=== PATIENT | male | born 1945 | race Caucasian/White ===

== ENCOUNTER → 2018-08-20 14:37 | Outpatient (CLI) | payer MEDICARE, OTHER, SELFPAY ==
--- NOTE | 2018-08-20 | DI.RAD.S_ITS ---
PROCEDURE: XR CHEST 2V INDICATIONS: shortness of breath TECHNIQUE: 2 views of the chest were acquired. COMPARISON: [facility], CT, CT HEAD/BRAIN WO CON, 08/20/2018, 14:40. FINDINGS: Surgical changes and devices: None. Lungs and pleura: No pleural effusions or pneumothorax. Bilateral pulmonary nodules are seen, with 3.5 cm left upper lobe mass and a dense 1 cm right lower lobe mass. No focal infiltrates are seen. Mediastinum: Mediastinal contours are normal. Heart size is normal. Bones and chest wall: No suspicious bony abnormalities. Soft tissues appear unremarkable. IMPRESSION: Bilateral pulmonary nodules are seen. Neoplasm is strongly suspected. Further workup with a dedicated chest CT would be recommended. Note: Case discussed by telephone with Theresa Almodovar PA-C at 3:10 PM [place] time on August 20, 2018. Dictated by: Kan Acuña M.D. on 08/20/2018 at 14:15 Approved by: Kan Acuña M.D. on 08/20/2018 at 14:16
--- NOTE | 2018-08-20 | DI.CT.S_ITS ---
PROCEDURE: CT HEAD/BRAIN WO CON INDICATIONS: Other amnesia/short of breath TECHNIQUE: Noncontrast 4.5 mm thick angled axial sections acquired from the foramen magnum to the vertex, with coronal and sagittal reformats. For radiation dose reduction, the following was used: automated exposure control, adjustment of mA and/or kV according to patient size. COMPARISON: [facility], CR, XR CHEST 2V, 08/20/2018, 14:45. FINDINGS: Image quality: Excellent. CSF spaces: Basal cisterns are patent. No extra-axial fluid collections. Brain: Dense intracranial masses with prominent surrounding vasogenic edema are seen. The largest solitary mass is a 3.6 cm right posterior temporal lobe mass. No richard, acute hemorrhage is detected. Mass effect is seen, with narrowing of the anterior horn of the right lateral ventricle. There is cerebral volume loss for age, with resultant ventricular and sulcal prominence. There are periventricular and deep white matter chronic small vessel ischemic changes. There is intracranial internal carotid artery atherosclerosis. Skull and face: Calvarium and visualized facial bones appear intact, without suspicious lesions. Sinuses: Visualized sinuses and mastoids are clear. IMPRESSION: Metastatic disease with brain edema and mass effect until proven otherwise. When clinically appropriate, a dedicated MRI without and with contrast is recommended (assuming that there is no contraindication). Additional workup to discover a neoplastic primary is also recommended. Note: Case discussed by telephone with Theresa Almodovar PA-C at 3:10 PM [place] time on August 20, 2018. Dictated by: Kan Acuña M.D. on 08/20/2018 at 14:05 Approved by: Kan Acuña M.D. on 08/20/2018 at 14:13
== END ==
PROVIDERS: PCP Physician Assistant; Visit Provider Physician Assistant
DX: C79.31 Secondary malignant neoplasm of brain (principal); C80.1 Malignant (primary) neoplasm, unspecified; G93.6 Cerebral edema; R41.3 Other amnesia; I65.29 Occlusion and stenosis of unspecified carotid artery; R06.02 Shortness of breath; F17.210 Nicotine dependence, cigarettes, uncomplicated; R91.8 Other nonspecific abnormal finding of lung field
CPT/HCPCS: 70450; 71046

== ENCOUNTER → 2018-08-25 08:34 | Oncology outpatient (ONC) | payer MEDICARE, OTHER, SELFPAY ==
--- NOTE | 2018-08-25 10:08 | ONC.CONS ---
History of Present Illness - Data of Consult Consult date: 08/25/18 Requesting Physician: Theresa Almodovar Primary Care Provider: Theresa Almodovar PA-C - Consult Narrative Narrative: Bernabe Loredo is a 73 year old male who is referred for further evaluation of a newly discovered cancer. 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 He notes that he began to lose weight. He also had some trouble with his memory and increasing confusion. The symptoms had been getting progressively worse over. Of a few months. Because of this he sought medical attention. He had a CT scan of his head performed on August 20 that showed dense intracranial masses with problem surrounding vasogenic this was in the right posterior temporal lobe measuring 3.6 cm. There is no evidence of hemorrhage. He also had a chest x-ray done that showed bilateral pulmonary nodules the largest in the left upper lobe measuring 3.5 cm. He has not yet had any biopsy. He denies any new aches or pains. He has had some chronic back pain for 20 years or more that it intermittently is present. It seems to have worsened a little bit recently. He has not noted any adenopathy. He has had anorexia and weight loss but no nausea or vomiting. Bowels have been moving normally. He has not noted any blood in the stools. No fevers chills or sweats. He has not been aware of any adenopathy. His past medical history is notable for occasional ectopic beats. He has had a history of hypercholesterolemia. He has otherwise been quite healthy. His medications include aspirin Lipitor and Aleve. He denies any drug allergies. His family history is notable for sister who had breast cancer. There is no other family history of malignancy. Social history: He is a . His about 4 years ago. He does smoke about a pack of cigarettes daily. He does have daily alcohol use although has cut back recently on his drinking. His son and [id number] and sister been staying with him recently. He lives on [address] [facility]. CC: Arjun Graham MD Patient reports pain?: No Home Medications and Allergies Home Medications Medication Instructions Recorded Confirmed Type dexamethasone [Decadron] 4 mg PO Q6H 30 Days #120 tab 08/25/18 Rx Allergies Allergy/AdvReac Type Severity Reaction Status Date / Time No Known Drug Allergies Allergy Verified 05/31/18 13:11 Medical History - Social History Smoking Status: Current every day smoker Alcohol Intake: current Current Occupational Status: retired Review of Systems Constitutional: weight loss, decreased activity level Ears, nose, mouth, throat: no headaches, no decreased hearing Cardiovascular: palpitations, no chest pain Respiratory: no shortness of breath, no cough, no sputum production, no hemoptysis Gastrointestinal: change in appetite, no dysphagia, no abdominal pain, no nausea, no vomiting Neurological: incoordination, memory loss, no seizures, no paralysis Exam - Constitutional positive no acute distress, positive thin - Routine HEENT Exam Head: Present: normocephalic, atraumatic Eye: Present: EOMI, PERRL. Absent: conjunctival icterus, scleral injection ENT: Present: mucous membranes moist, oropharynx clear, dentition normal - Routine Neck Exam Present: supple. Absent: lymphadenopathy, thyromegaly - Routine Chest/Breast/Axilla Exam Chest wall exam standard: Absent: tenderness Axillae: Absent: lymphadenopathy - Routine Respiratory Exam Present: Clear to auscultation bilaterally. Absent: rales, wheezes - Routine Cardiovascular Exam Present: RRR, S1, S2. Absent: murmur - Routine Abdominal Exam Present: soft, normoactive bowel sounds. Absent: tenderness, organomegaly, mass - Routine Extremities Exam Absent: cyanosis, clubbing, edema - Routine Back/Spine Exam Back/Spine: Absent: paraspinal tenderness, vertebral tenderness - Routine Skin Exam Present: intact. Absent: petechiae, rash - Routine Neurological Exam Present: alert, CN II-XII intact. Absent: sensory deficit, motor deficit [place] is somewhat slow. He does appear to be somewhat forgetful. He does require the assistance of his arms in order to rise from a chair. 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 His primary tumor is not yet known but he does have a pulmonary mass. I think lung cancer is the likely etiology. Will trying get him scheduled for an MRI of the brain as well as referral to Radiation Oncology and start him on some dexamethasone. He will also have a CT scan of the chest abdomen pelvis and a CT-guided biopsy of the lung lesion or of any other easily accessible lesion. Once his diagnosis is known, I think we would be more able to come up with a reasonable treatment plan. The patient and his sister report that he would not want aggressive chemotherapy if the likelihood of cure was low or if survival benefit was only modest. I think we will be able to better address this once we have an idea of what type of cancer this is an its full extent. He will return to clinic here after the above testing. Hopefully at that time will be able to come up with a more definitive treatment plan. Current visit: Yes Status: Acute
[2018-08-25 10:18] VITALS: BP 138/86; PULSE 73; RESP 16; TEMP 36.6; O2SAT 98
--- NOTE | 2018-09-07 10:42 | ONC.NAV ---
Description: Care Coordination Activity: Called pt's sister, who is the primary contact listed for pt, to clarify what has been done concerning the plan for radiation, introduce myself as the Pt Tyler/MECHANICAL MAINTENANCE FOREMAN, and explained briefly ways that navigation can assist with ongoing resource/support needs. She states that pt's son and [id number] are now living in the home with him, and are providing for his increasing care needs. Pt is reportedly continuing to show deterioration in terms of functional status and disease progression. Regarding radiation, pt has been receiving radiotherapy at [facility], and has completed 4 out of 10 treatments thus far. They will be coming in 09/10 for pt's lung biopsy, followed by a f/u visit with Dr. Graham on 09/21. Pt's sister denies the need for any additional support or resources at this time, however she expressed feeling grateful for the call and knowing about the assistance available by this MECHANICAL MAINTENANCE FOREMAN. Plan: Continue to monitor. Offer assistance as needed. Resuscitation orders and advanced directives will need to be followed-up on as pt continues to decline. We will also need a copy of available advanced directives.
--- NOTE | 2018-09-07 16:00 | PC.NURSE ---
Addendum entered by Gloria Flanagan R.N. 09/08/18 10:10: Received Rx from Dr Gamez for pain relief, however, pt was seen in RAD on 09/07 and was issued a script for pain by radiologist so our script was voided and shredded. Original Note: Pt sister called to report pt needing pain medication ordered. Call was taken by July Navigator for the department. After reviewing your notes from his first visit, I was not able to determine if it was related to long standing back issue or advancing cancer pain. I tried calling to get a better idea from the sister, but after several attempts, I never did reach her. If you feel a pain medication is in order, could you please issue one and leave it along with this note on the triage desk and I will be sure he gets it tomorrow. Thanks
--- NOTE | 2018-09-08 13:59 | PC.NURSE ---
Sister called to report pts deterioration. He was suppose to have radiation today but was unable to go due to his weakened state. She reports him as sleeping most of the day, mentally in and out and not really eating or drinking much. Tomorrow (09/09) pt is scheduled to have a lung bx but she was wondering if he she go thru with this. I told her that she should have this discussion with him and the rest of his family and decided what is best for him. If he was ready we could move forward with hospice at any time. What was important was making him comfortable at this stage. [facility] Dr Graham has been advised of this development
== END ==
PROVIDERS: PCP Physician Assistant
DX: C79.31 Secondary malignant neoplasm of brain (principal); C80.1 Malignant (primary) neoplasm, unspecified; J98.4 Other disorders of lung; F17.210 Nicotine dependence, cigarettes, uncomplicated
CPT/HCPCS: 99205; 99215

== ENCOUNTER → 2018-08-26 11:54 | Outpatient (CLI) | payer MEDICARE, OTHER, SELFPAY ==
--- NOTE | 2018-08-26 11:58 | DI.CT.S_ITS ---
PROCEDURE: CT CHEST ABD PEL W CON INDICATIONS: new diagnosis of metastatic cancer unknown origin TECHNIQUE: After the administration of oral and intravenous contrast, 5 mm thick sections acquired from the lung apices to the symphysis. 5 mm coronal and sagittal reformats were performed, with additional 7 mm coronal MIP reformats through the lungs. For radiation dose reduction, the following was used: automated exposure control, adjustment of mA and/or kV according to patient size. COMPARISON: [facility], CT, CT HEAD/BRAIN WO CON, 08/20/2018, 14:40. FINDINGS: Image quality: Excellent. CHEST: Lungs and pleura: Soft tissue mass with spiculated margin is noted involving posterior medial aspect of left upper lobe measures 2.3 x 2.7 x 2.9 cm in size. 4 mm soft tissue density nodule is noted in lateral aspect of right lower lobe series 3 image 36. 5 mm soft tissue density nodule is noted in anterior lateral aspect of right lower lobe posterior to the major fissure series 3 image 44. 8 mm calcified granuloma is noted in the central portion of the right lower lobe series 2 image 50. Linear scarring/atelectasis are noted in bilateral lung bases. No pleural effusions or pneumothorax. Central and peripheral airways appear patent and normal in caliber. Mediastinum: Heart size is normal. No pericardial effusion. Prominent lymph nodes are seen in mediastinum and left hilar region measures up to 1.5 x 2.5 cm in size. 1.2 cm precarinal lymph node is also seen. Thoracic aorta and central pulmonary arteries are normal in size. Atherosclerotic calcifications throughout clinical vessels and thoracic aorta is seen. Esophagus is normal in caliber. No hiatal hernia. Chest wall: No axillary or supraclavicular adenopathy by size criteria. Thyroid gland is normal in size. 1 x 1.3 cm oval hypodense area involving lower pole of left thyroid lobe is seen. ABDOMEN: Solid organs: Liver is normal in size. Multiple ill-defined hypodense and solid-appearing lesions are noted scattered in right and left hepatic lobes measures up to 2.4 x 3 cm in size in inferior aspect of right hepatic lobe, suggestive of extensive liver metastatic disease. Gallbladder is contracted and shows no gross abnormality. Biliary system is non dilated. Pancreas enhances normally. Spleen is normal in size and enhancement. Thickened bilateral adrenal glands are seen with suggestion of bilateral adrenal nodules measures up to 1.1 x 1.6 cm in size in right adrenal gland and 1.2 cm in size the left adrenal gland. Bilateral kidneys are normal in size. 2.3 x 2.4 cm solid-appearing structure involving posterior medial cortex of mid pole left kidney is seen and is not consistent with a simple cyst. Bilateral nonobstructing renal calculi are noted. No hydronephrosis. 4 cm simple cyst in mid to lower pole of right kidney is seen. Peritoneum and bowel: Bowel loops demonstrate normal wall thickness and caliber. No free fluid or air. Fecal stasis colon is seen. Nodes and vessels: No gross mesenteric adenopathy. There is a prominent left para-aortic lymph node measures 1 cm in short axis diameter. Atherosclerotic calcifications dwell abdominal aorta is seen with mild ectasia of infrarenal abdominal aorta up to 2.3 cm in largest AP diameter. IVC is normal in size. Miscellaneous: No ventral hernias. PELVIS: Genitourinary: Bladder wall thickness is normal. Enlarged prostate gland with mass effect on floor of urinary bladder is seen. Miscellaneous: No inguinal hernias or adenopathy. Bones: No suspicious bony lesions. No vertebral body compression fractures. IMPRESSION: 1. Spiculated mass in left upper lobe measures 2.3 x 2.7 x 2.9 cm in size suspicious for primary lung malignancy. 4-5 mm soft tissue density nodules are noted in right lower lobe as described above, metastatic lung nodule cannot be excluded. Calcified granuloma in right lower lobe. Airway is patent. 2. Mediastinal and left hilar adenopathy, suspicious for metastatic lymphadenopathy. 3. Numerous metastatic lesions scattered in liver parenchyma as above. 4. Diffusely thickened bilateral adrenal glands with suggestion of small bilateral adrenal nodules. Finding could represent adrenal adenoma, metastatic adrenal lesions cannot be excluded. 5. 2.3 x 2.4 cm solid-appearing structure involving posterior medial cortex of mid pole left kidney and is not consistent with a simple renal cyst. Malignant process such as renal cell carcinoma is suspected. No obstructing renal stone or hydronephrosis. Bilateral nonobstructing renal calculi. 4 cm simple cyst in right kidney. 6. Nonspecific borderline enlarged left periaortic lymph node. No other abdominal or pelvic adenopathy. 7. Enlarged prostate gland with mass effect on floor of urinary bladder. Dictated by: David Masters M.D. on 08/26/2018 at 17:00 Approved by: David Masters M.D. on 08/26/2018 at 17:22
== END ==
PROVIDERS: PCP Physician Assistant
DX: C80.1 Malignant (primary) neoplasm, unspecified (principal); C79.31 Secondary malignant neoplasm of brain; C78.7 Secondary malignant neoplasm of liver and intrahepatic bile duct; R91.8 Other nonspecific abnormal finding of lung field; R59.0 Localized enlarged lymph nodes; N28.89 Other specified disorders of kidney and ureter; N20.0 Calculus of kidney; N28.1 Cyst of kidney, acquired; N40.0 Benign prostatic hyperplasia without lower urinary tract symptoms
CPT/HCPCS: 71260; 74177; Q9967

== ENCOUNTER → 2018-08-30 07:12 | Outpatient (CLI) | payer MEDICARE, OTHER, SELFPAY ==
--- NOTE | 2018-08-30 | DI.MRI.S_ITS ---
PROCEDURE: MR HEAD/BRAIN WO/W CON INDICATIONS: Malignant (primary) neoplasm, unspecified TECHNIQUE: Noncontrast axial T1 spin echo, axial T2 fast spin echo, sagittal and axial FLAIR, coronal T2 fast spin echo, axial gradient echo, axial diffusion and ADC through the brain. After the administration of contrast, axial and coronal T1 spin echo with fat saturation through the brain. COMPARISON: [facility], CT, CT CHEST ABD PEL W CON, 08/26/2018, 13:17. [facility], CT, CT HEAD/BRAIN WO CON, 08/20/2018, 14:40. FINDINGS: Image quality: Diagnostic, with note made of motion artifact. CSF spaces: Basal cisterns are patent. No extra-axial fluid collections. Ventricles are normal in size and shape. Brain: Multiple sites of rim-enhancing masses are seen. The largest is seen within the right temporal lobe measuring 4.4 x 2.8 centimeters in greatest axial dimension, with a craniocaudal extent of 3.1 cm. Within the right frontal lobe medially, there is a mass seen that measures 2.4 x 2.3 cm in greatest axial dimension, with a craniocaudal extent of 2.4 cm. Mass effect is seen upon the corpus callosum and the right lateral ventricle at this site. Within the left frontal lobe, there is a 3.5 x 2.1 x 2.3 cm mass seen. Within the medial left frontal lobe adjacent to the corpus callosum posteriorly, there is a 2 x 2.2 x 2.1 cm mass seen. Additional smaller masses are seen elsewhere, including a subcentimeter mass within the right cerebellum. At least 9 separate enhancing foci can be seen. There is moderate mass effect seen, including deviation of the midline anteriorly to the right a 5 mm. A moderate to prominent amount of surrounding edema can be seen. Several of the lesions demonstrate increased precontrast T1 weighted signal, with which is attributed to recent hemorrhage. Several of the lesions demonstrate susceptibility artifact, which is attributed to hemosiderin deposition. At least 3 lesions demonstrate increased diffusion weighted signal with associated decreased signal on ADC maps, which is highly suggestive highly cellular tumors. There is cerebral volume loss for age. There is periventricular white matter chronic small vessel ischemic change. The brainstem appears normal. Diffusion-weighted images demonstrate no acute ischemic insults. Normal intravascular flow voids are present. Skull and face: Calvarial marrow is normal in signal. Orbits appear normal. Sinuses: There is a mucous retention cyst seen within the left maxillary sinus. The paranasal sinuses otherwise appear relatively clear. No significant mastoid air cell fluid can be seen. IMPRESSION: At least 9 brain metastases can be seen. There is associated edema and mass effect. A few of the lesions demonstrate hemorrhage, including recent hemorrhage, as manifested by increased precontrast T1 weighted signal. A few of the lesions demonstrate abnormal diffusion weighted signal, which is highly suggestive of highly cellular tumors. Dictated by: Kan Acuña M.D. on 08/30/2018 at 10:33 Approved by: Kan Acuña M.D. on 08/30/2018 at 10:44
== END ==
PROVIDERS: PCP Physician Assistant
DX: C80.1 Malignant (primary) neoplasm, unspecified (principal); C79.31 Secondary malignant neoplasm of brain
CPT/HCPCS: 70553; A9579

== ENCOUNTER → 2018-09-03 13:34 | Outpatient (CLI) | payer MEDICARE, OTHER, SELFPAY ==
[2018-09-03 14:00] LABS: Platelet Count 316 X10^3/uL (150-400)
[2018-09-03 14:35] LABS: INR 1.1 (0.9-1.3); Prothrombin Time 11.6 SECONDS (10.1-12.7)
== END ==
PROVIDERS: Family Provider Physician Assistant; PCP Physician Assistant
DX: R91.1 Solitary pulmonary nodule (principal)
CPT/HCPCS: 36415; 85049; 85610

== ENCOUNTER 2018-09-10 12:03 | Inpatient (IN) | payer MEDICARE, OTHER, SELFPAY ==
[2018-09-10] VITALS (19 sets, daily range): BP systolic 103–145; BP diastolic 53–84; PULSE 54–81; RESP 11–20; TEMP 36.3–36.9; O2SAT 95–100; BMI 22.9; BMI 16.5
--- NOTE | 2018-09-10 | PATH_ITS ---
[facility] Accession Number: [id number] . 01 Material submitted: . LEFT UPPER LOBE . 01 Clinical history: . LUNG MASS BX MULTIPLE LIVER METS, BRAIN METS PATIENT MOST LIKELY WILL BE ON KEYTRUDA PER ONCOLOGY . 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 MRV/09/14/2018 . 02 Comment: The results of this evaluation are telephoned to Dr. July Cooper and also Dr. Yenni Graham at 3 p.m. on 09/14/2018. . Case reviewed by Dr. Inés Ravi, who agrees with the diagnosis. . 02 Electronically signed: . Kristopher Locke MD, Pathologist NPI- [id number] . 01 Gross description: . Received in one formalin-filled container labeled with the patient's name and designated lung tissue, are two friable, 0.1 cm in diameter, cylindrical-shaped portions of tissue which range in length from 0.4 cm to 0.5 cm. Entirely submitted in one cassette. ([id number]) /FRR . 02 Microscopic: . Sections are of a needle core biopsy stated to be from a mass in the upper lobe of the left lung. The tissue cores are partially replaced by a malignant neoplasm that is very poorly differentiated. The tumor cells are of intermediate size with a round slightly irregular nuclei and rather bland chromatin and indistinct nucleoli. Organoid differentiation is not noted. In an attempt to better identify the cell of origin of this malignant neoplasm, immunoistochemistry is performed. . IMMUNOHISTOCHEMISTRY RESULTS 1. Cytokeratin 7: Positive. 2. TTF1: Positive. 3. Synaptophysin: Positive. 4. CK5/6: Negative. . INTERPRETATION: This immunophenotype is consistent with a neuroendocrine carcinoma (small cell carcinoma) although the tumor cells are slightly larger than the usual small cell carcinoma. The immunophenotype is not consistent with a primary adenocarcinoma of lung. . 02 Pathologist provided ICD-10: C34.12 . 02 CPT . 864018, [id number], [id number] Performed at: 01 [facility] [address] [id number] MD Renato Pereira MD Phone: [phone] Performed at: 02 [facility] [id number] [address] [place] [id number] MD Marcelo Munoz MD Phone: [phone]
--- NOTE | 2018-09-10 | DI.RAD.S_ITS ---
PROCEDURE: XR CHEST 1V INDICATIONS: PNEUMOTHORAX FOLLOW UP TECHNIQUE: One view of the chest was acquired. COMPARISON: [facility], CR, XR CHEST 1V, 09/10/2018, 12:09. [facility], CT, CT BIOPSY LUNG LT, 09/10/2018, 10:05. [facility], CT, CT CHEST ABD PEL W CON, 08/26/2018, 13:17. [facility], CR, XR CHEST 1V, 09/10/2018, 10:10. FINDINGS: Lungs and pleura: Left sided CT guided biopsy of a left upper lobe mass was performed earlier today, with identified secondary pneumothorax. The maximal craniocaudad dimension of the pneumothorax is now 10.6 cm, and there is no identified mediastinal shift from left to right but this represents a significant sequential increase in pneumothorax after lung biopsy, initially identified during CT scanning and thereafter by plain film imaging. Stable small calcified granuloma medial right lung base. Mediastinum: Mediastinal contours appear normal. Heart size is normal. Bones and chest wall: No suspicious bony lesions. Overlying soft tissues appear unremarkable. IMPRESSION: Significant interval increase in a left-sided pneumothorax previously identified initially after the first of 3 core biopsies of a left upper lung malignancy was performed. The subsequent increase over time has been significant and the surgical team has been contacted for consideration of placement of chest tube on the left. Dictated by: Dillon Cooper M.D. on 09/10/2018 at 12:56 Approved by: Dillon Cooper M.D. on 09/10/2018 at 12:59
--- NOTE | 2018-09-10 | DI.RAD.S_ITS ---
PROCEDURE: XR CHEST 1V INDICATIONS: POST LUNG BIOPSY TECHNIQUE: One view of the chest was acquired. COMPARISON: [facility], CR, XR CHEST 2V, 08/20/2018, 14:45. FINDINGS: Surgical changes and devices: None. Lungs and pleura: No pleural effusion. Lungs are abnormal with a left upper lobe lung mass again visible. There is a left-sided apical pneumothorax measuring up to 2.9 cm tangentially, the result of a CT guided biopsy just before the plain film was obtained. Calcified granuloma medial right lower lobe. Mediastinum: Mediastinal contours appear normal. Heart size is normal. Bones and chest wall: No suspicious bony lesions. Overlying soft tissues appear unremarkable. IMPRESSION: 2.9 cm left apical pneumothorax after CT guided lung biopsy. The pneumothorax was recognized during CT scanning and considering differences in technique likely has not significantly enlarged from the spinal CT acquisition. Condition of the patient was discussed with the patient, and a followup chest plain film will be obtained in 30 minutes from time of acquisition of this examination. Dictated by: Dillon Cooper M.D. on 09/10/2018 at 11:04 Approved by: Dillon Cooper M.D. on 09/10/2018 at 11:06
--- NOTE | 2018-09-10 | DI.RAD.S_ITS ---
PROCEDURE: XR CHEST 1V INDICATIONS: PNEUMOTHORAX TECHNIQUE: One view of the chest was acquired. COMPARISON: [facility], CR, XR CHEST 1V, 09/10/2018, 10:38. FINDINGS: Surgical changes and devices: Chest tube placed lateral left hemithorax, reexpansion of the left lung after evacuation of left-sided increasing pneumothorax.. Lungs and pleura: No pleural effusions or pneumothorax. Lungs are clear. Mediastinum: Mediastinal contours appear normal. Heart size is normal. Bones and chest wall: No suspicious bony lesions. Overlying soft tissues appear unremarkable. IMPRESSION: Successful evacuation of a left-sided pneumothorax despite left lateral pleural drain. Pulmonary mass lesion again noted medial left upper lung, the site of CT guided lung biopsy. Dictated by: Dillon Cooper M.D. on 09/10/2018 at 12:31 Approved by: Dillon Cooper M.D. on 09/10/2018 at 12:32
--- NOTE | 2018-09-10 11:07 | DI.CT.S_ITS ---
PROCEDURE: CT BIOPSY LUNG LT Sedation analgesia for 30 minutes. INDICATIONS: Left upper lobe mass TECHNIQUE: The indications, alternatives, benefits, risks, and possible complications of the procedure were communicated to the patient. Informed written consent from the patient was obtained and placed in the chart. Continuous EKG and hemodynamic monitoring was started by trained personnel. The patient was brought to the CT suite and efficiency engineer spiral CT imaging was performed with localization grid. The appropriate site for percutaneous access to the biopsy target was marked, was prepped and draped sterilely, and was infused with local anaesthesia. Under CT guidance, a core biopsy trocar and needle set was advanced to the biopsy target, and specimen(s) were obtained. The trocar and needle were then removed, and the patient was sent for post-procedure monitoring. COMPARISON: None. FINDINGS: Biopsy site: Left upper lobe lung mass Needle: 20 gauge biopsy needle with introducer trocar. Number of passes: 3, and the procedure was terminated due to an enlarging pneumothorax on the left that developed after the first biopsy sample was obtained. Medications: 1% lidocaine for local anaesthesia. IV Fentanyl and Versed for conscious sedation for 30 minutes (see nursing record). Complications: None. IMPRESSION: Successful CT-guided biopsy of the left upper lobe lung mass in this patient with brain metastasis and hepatic metastatic disease. The procedure was terminated after the third core biopsy was obtained due to sequentially enlarging left pneumothorax that developed immediately after the first core biopsy was obtained. Followup plain film imaging showed further increase of this left-sided pneumothorax and a chest tube was subsequently placed by the surgical staff. Dictated by: Dillon Cooper M.D. on 09/10/2018 at 12:53 Approved by: Dillon Cooper M.D. on 09/10/2018 at 12:55
--- NOTE | 2018-09-10 11:38 | SUR.PREOP ---
pt transferred to PACU bay at 1130 for chest tube placement by Dr. Chowdhury. VSS, sats mid 90's.
[2018-09-10] MEDS: fentaNYL 100 MCG/2 ML INJ IV (11:54)
[2018-09-10] MEDS: MIDAZOLAM 2 MG/2 ML VIAL IV ×2 (11:54→12:03)
--- NOTE | 2018-09-10 12:35 | SUR.PHASEI ---
Chest tube placed in PACU by Dr. Chowdhury. Procedure began at 1155 and ended at 1209. Consent signed, pt on [address] Chowdhury 2mg Versed and 100mcg Fentanly given at 1154. At 1203 another 1mg Versed given. Pt tolerated procedure well. IAnnmarie RN, held pt's arms in place as a reminder to keep left arm raised overhead and to keep right arm from touching the procedure site. Pt slept through the entire procedure and denies pain s/p procedure. Pleuravac connected to suction and set at 20cm per Dr. Chowdhury.
--- NOTE | 2018-09-10 13:10 | PM.HP.1 ---
History of Present Illness Date Patient Seen: 09/10/18 Time Patient Seen: 13:10 Chief complaint: Secondary malignant neoplasm of brain [id number] Narrative: Patient is a gentleman with what appears to be metastatic lung cancer here for CT directed biopsy of the left chest. Biopsy cause a pneumothorax and was asked to the patient. Chest tube was placed urgently. He is now being been deferred management of that chest tube. Patient History Medical History Lung cancer metastatic to brain (Acute) Family & Social History Social History: household members family Tobacco & Substance use: Smoking Status Current every day smoker alcohol intake current Meds Home Medications Medication Instructions Recorded Confirmed Type aspirin 325 mg PO DAILY 08/25/18 08/25/18 History atorvastatin 20 mg PO DAILY 08/25/18 08/25/18 History dexamethasone [Decadron] 4 mg PO Q6H 30 Days #120 tab 08/25/18 08/25/18 Rx naproxen sodium [Aleve] 220 mg PO BID PRN 08/25/18 08/25/18 History oxycodone-acetaminophen 2 tab PO Q4-6H PRN 30 Days #60 tab 09/07/18 Rx Allergies Allergy/AdvReac Type Severity Reaction Status Date / Time No Known Drug Allergies Allergy Verified 05/31/18 13:11 Review of Systems Review of Systems Family relates these little confused at times and somnolent. No chest pain. No black or bloody bowel movements. Not eating well. Not drinking well. Exam Vital Signs (past 8 hours): - 09/10/18 09:41 09/10/18 10:15 09/10/18 10:16 Temperature 97.9 F Pulse Rate 60 70 70 Respiratory Rate 20 16 14 Blood Pressure 127/65 131/65 135/76 Pulse Oximetry 98 100 100 09/10/18 10:22 09/10/18 10:27 09/10/18 10:35 Temperature Pulse Rate 69 73 79 Respiratory Rate 14 16 Blood Pressure 122/66 126/66 Pulse Oximetry 100 99 09/10/18 11:16 09/10/18 11:50 09/10/18 11:55 Temperature 97.7 F Pulse Rate 63 67 63 Respiratory Rate 16 15 13 Blood Pressure 109/59 L 136/71 128/72 Pulse Oximetry 96 97 100 09/10/18 12:00 09/10/18 12:05 10/19/18 12:10 Temperature Pulse Rate 65 64 67 Respiratory Rate 11 L 11 L 16 Blood Pressure 113/66 125/64 121/64 Pulse Oximetry 97 95 95 09/10/18 12:15 09/10/18 12:20 Temperature Pulse Rate 67 60 Respiratory Rate 16 16 Blood Pressure 103/58 L 112/62 Pulse Oximetry 99 97 Oxygen Delivery Method Nasal Cannula Oxygen Flow Rate 4 Narrative Exam Narrative: Operative no apparent distress. Left-sided chest tube. A little confused. Lungs are clear. Heart regular rate and rhythm without murmur or gallop. Abdomen is scaphoid soft nontender without mass. Assessment & Plan Plan: Assessment/Plan Narrative: Will bring into care for his chest tube. Placed to suction.
--- NOTE | 2018-09-10 14:13 | PC.NURSE ---
pt admitted from PACU. quiet, states doesn't know to many questions. son, Man here at bedside. Dilaudid 0.5mg IV given for left side/chest pain. IVF infusing.
[2018-09-10] MEDS: HYDROMORPHONE 1 MG INJ 0.5 MG IV (14:15)
[2018-09-10] MEDS: DEXTROSE 5%-0.45% NS 1,000 ML 100 ML IV ×2 (14:15→23:12)
[2018-09-10] MEDS: KETOROLAC 15 MG/ML VIAL IV ×2 (14:25→20:18)
--- NOTE | 2018-09-10 14:48 | PC.NURSE ---
pt's sister, Crista here. She states pt is DNR and she is trying to get hospice involved.
[2018-09-10] MEDS: MIDAZOLAM 2 MG/2 ML VIAL 0.5 MG IV (17:01)
[2018-09-10] MEDS: fentaNYL 100 MCG/2 ML INJ 50 MCG IV (17:01)
[2018-09-10] MEDS: HYDROCODONE/ACET 5/325 TABLET 1 TAB PO (17:54)
[2018-09-10] MEDS: DEXAMETHASONE 4 MG TABLET PO ×2 (17:54→23:48)
[2018-09-10] MEDS: ATORVASTATIN 20 MG TABLET PO (20:19)
--- NOTE | 2018-09-10 22:57 | PC.NURSE ---
Chest tube to suction -20cm, intermittent mild air leak. Dr. Crandall aware. 5mls serosang drainage. Pt oriented to self and place, confused and vague with conversation. Refuses to remove jeans, unable to visual skin below jeans. c/o pain 4/10 between shoulder blades, will refuse PRN pain medication and then accept medication if asked again. Given PRN Browder 5/325 and Toradol with stated relief. Family at bedside a majority of the shift.
[2018-09-11] VITALS (9 sets, daily range): BP systolic 119–135; BP diastolic 54–62; PULSE 54–72; RESP 15–19; TEMP 36.4–36.5; O2SAT 96–100
--- NOTE | 2018-09-11 03:24 | PC.NURSE ---
Addendum entered by Aviva Tellez R.N. 09/11/18 06:01: Remains disoriented, thinks he is in [place]. Fidgety in bed, impulsive. Pulls at tubing of CT and needs frequent reminders to not pull at lines. Still refusing to remove his jeans, buttocks and legs unable to assess. Sp02 97% RA. Original Note: Pt initially A/O X 3. Awoke at 0315 attempting to get OOB. Pt disoriented but remains quiet and vague with any answers to questions from staff. Pt unable to tell staff where he wants to go but continues to attempt to get OOB. Assisted back into bed. Left chest tube maintained, no air leaks noted. Site WNL. Draining scant serosanguinous drainage in tubing. Reports pain but declines offered medication X 2. Bed alarm verified active. Will monitor closely.
[2018-09-11] MEDS: DEXAMETHASONE 4 MG TABLET PO ×4 (05:49→23:55)
[2018-09-11] MEDS: DEXTROSE 5%-0.45% NS 1,000 ML 100 ML IV (10:13)
[2018-09-11] MEDS: ENOXAPARIN 40 MG/0.4 ML SYRINGE SUBCUT (10:15)
--- NOTE | 2018-09-11 10:39 | PC.NURSE ---
Addendum entered by Yohana Junior R.N. 09/11/18 12:06: correction to below, small air leak detailed as: air leak noted to be 3+. Update rec'd from Dr. Crandall at 1200, continue suction to chest tube. Aware of intermittent air leak. Original Note: Day Shift- Report rec'd from MARTHA Arciniega in ICU at 0910. Pt arrived to room 224 via wheelchair at 0935. Currently sitting up in recliner chair at bedside, chair alarm on. Call light within reach. Left chest tube dressing CDI. To 20cm wall suction, small air leak noted. 99% O2 sat on continuous O2 monitoring. Family at bedside.
--- NOTE | 2018-09-11 12:18 | PM.PN.1 ---
Subjective Date Patient Seen: 09/11/18 Time Patient Seen: 12:18 Interval history: Patient remains somewhat confused but is sitting comfortably in bedside chair. Sisters at the bedside with him. His son arrives during my visit. Patient states that he is not having significant pain, but his pain levels difficult to assess. He has been refusing oxycodone and/or hydrocodone when offered per the nursing staff. However, he appears to be uncomfortable when he attempts to move in his chair or specially with cough. Denies any shortness of breath. No chest pain other than that at the tube site. Exam Vital Signs (past 8 hours): - 09/11/18 05:54 09/11/18 07:30 09/11/18 09:40 Temperature 97.7 F Pulse Rate 61 Respiratory Rate 16 Blood Pressure 127/62 Pulse Oximetry 97 99 99 09/11/18 09:44 Temperature Pulse Rate Respiratory Rate Blood Pressure Pulse Oximetry 96 Oxygen Delivery Method Room Air Oxygen Flow Rate 0 Narrative Exam Narrative: Sitting in bedside chair using his cellphone. No acute distress. Alert. Overall he appears somewhat emaciated, and he has not been eating a particularly significant amount of food. Family states he was quite dehydrated at the time he was brought to the hospital yesterday. Dressing clean, dry, intact Remains afebrile and otherwise hemodynamically stable without tachycardia. No hypoxia. Obvious air leak persists, especially with cough. Objective Labs Labs: Laboratory Results - last 24 hr 09/10/18 13:50 Nasal Screen MRSA (PCR) Positive for mrsa H No new laboratory or radiographic studies for review Assessment & Plan Plan: Assessment/Plan Narrative: 73-year-old male with left pneumothorax status post CT-guided needle biopsy subsequently resolved with tube thoracostomy. However, he continues to have air leak. Post procedure x-ray showed the lung to be re-expanded. I see no indication to repeat chest x-ray at this point as we will need to leave the chest tube to suction based on the leak. He may have food from outside hospital if he wishes. We will change him to scheduled intravenous Toradol. Add proton pump inhibitor, especially since he is also receiving Decadron. Ambulate with assistance as he wishes. We discussed multiple potential options for pain control as well. Discussed with nursing staff. They will continue to offer him oral analgesia every 4-6 hours. Patient understands that he may refuse if he wishes. All the above discussed with the patient and his family in detail. Questions were answered to their satisfaction, and everyone voiced understanding. Orders were written. Quality VTE Deep Vein Thrombosis/Pulmonary Embolism Present on Admission: No
[2018-09-11] MEDS: KETOROLAC 15 MG/ML VIAL IV ×3 (12:19→23:54)
[2018-09-11] MEDS: OXYCODONE/ACETAMINOPHEN 5/325 TABLET 2 TAB PO (12:28)
[2018-09-11] MEDS: PANTOPRAZOLE 40 MG VIAL IV (12:34)
--- NOTE | 2018-09-11 16:22 | CM.DANOTE ---
Discharge Planning/Care Management DCP: assessment: case received, EMR reviewed and discussed in Team Rounds today. 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 He admitted to care of [facility] Sur[facility] yesterday afternoon after a CT guided biopsy led to a pneumothorax with need for urgent chest tube placement. PCP: AUTUMN Almodovar Payer: Medicare and [employer] Pt carries a dx of lung CA with brain mets and was seen by Dr. Graham at [facility]/ for initial consult on 08/25. It is noted that the oncology TECHNICIAN/PT Navigator July Marquez has connected with pt's sister/see her note of 09/07. Their notes indicate that pt is receiving radiation therapy at [facility]/ ot of 10 treaments thus far. P: meet with pt and or his family/advocates to continue the assessment process. Much is unknown at this time but current focus in the hospital is the chest tube management. CM Discharge Assessment Start: 09/11/18 16:17 Freq: Status: Active Protocol: Document 09/11/18 16:18 ITV (Rec: 09/11/18 16:22 ITV [id number]) Discharge Planning Assessment History Provided By Medical Record Prior Living Arrangements House Comment lives on [facility]. Family members currently staying with him Household Members family Comment son and DIL. Sister [place] [facility] [place] is supportive Comment pending visit tomorrow to room Review Status In Process Next Review Type Continued Stay Review
[2018-09-11] MEDS: ATORVASTATIN 20 MG TABLET PO (20:06)
[2018-09-11] MEDS: DEXTROSE 5%-0.45% NS 1,000 ML 70 ML IV (23:37)
[2018-09-12] VITALS (9 sets, daily range): BP systolic 103–134; BP diastolic 54–65; PULSE 60–68; RESP 14–18; TEMP 35.8–36.7; O2SAT 96–99
--- NOTE | 2018-09-12 01:32 | PC.NURSE ---
Addendum entered by Kassi Farrar R.N. 09/12/18 05:30: 0515 pt exiting bed, stating he needs to pee. Pt assisted to stand at the bedside with 2PA FWW to use urinal, pt appears to investigate the urinal and seems to not understand how to use initially, pt then states that he already voided in his brief and no longer needs to void. Pt reoriented to urinal use but still denies need to void. Original Note: slot shift manager: 0100 pt exiting bed, bed alarm sounding and pt found to have removed part of chest tube dressing. Pt very confused and wanting to go to the bathroom. Secured chest tube dressing, chest tube remains to suctions with no change in air leak status. Pt assisted 2PA to bathroom to void, pt confused and agitated with staff and unable to void, pt states I will do whatever you want me to do, pt assisted back to the bedside and used urinal with assist to void. Need a lot of queing with care. Denies pain and wants states he wants to be left alone to rest.
[2018-09-12] MEDS: KETOROLAC 15 MG/ML VIAL IV ×2 (06:21→12:05)
[2018-09-12] MEDS: DEXAMETHASONE 4 MG TABLET PO ×3 (06:21→17:31)
--- NOTE | 2018-09-12 09:07 | PC.NURSE ---
Addendum entered by Greta Terry R.N. 09/12/18 14:48: 1330-Updated Dr Crandall of increased drainage from chest tube, over 400mls so far since change of shift. Increased gross bloody drainage. Spo2 stable 98% RA at present, no change to resp effort. Increased c/o pain, given IV dilaudid x2, this shift and Percocet. Pt has had increased confusion, discussion with family about DNR, and agreeable to controlling pain, even If pt remains groggy. Discussed safety with fall today and increased confusion/narcotic use, requested POLST form from family. Sister is MAYITO. 1220-Pt has been with sitter this shift, reporting increased pain to L chest, increased bloody drainage to chest tube, STAT CXR obtained. Dr Crandall notified of results. In surgery, Carmela Fang RN relayed message. Original Note: Pt Fall 829-Pt family arrived and Pt was getting from floor to window seat. Reporting he had a fall. THERAPY MANAGER Yanira into room and notified this RN. Assessed Pt, more sang. drainage to chest tube, air leak present, as it was on bedside shift report. Pt had been in chair with chair alarm, however, Pt reports removing it. That's Bull shit, I dont need that nonsense reinforced benefit to safe ambulation given chest tube and potential for injury. Pt will need continued teaching, as well as increased supervision. THERAPY MANAGER 1:1 and family at bedside, notified Dr Crandall, no new orders at this time. L elbow with 2cm skin tear and superficial abrasion noted to L scapula. No crepitous noted, pulled chest tube dressing and sutures are intact. Pain reported to insertion site. Refusing medication for pain, even with family encouragement. Coordinator notified and 1:1 sitter requested.
[2018-09-12] MEDS: HYDROMORPHONE 1 MG INJ 0.5 MG IV ×4 (10:32→22:57)
--- NOTE | 2018-09-12 10:55 | DI.RAD.S_ITS ---
PROCEDURE: XR CHEST 1V INDICATIONS: Chest tube with increased drainage since fall this AM TECHNIQUE: One view of the chest was acquired. COMPARISON: [facility], CR, XR CHEST 1V, 09/10/2018, 12:09. FINDINGS: Surgical changes and devices: Left thoracostomy tube is unchanged in position. Lungs and pleura: There is a small left apical pneumothorax which was not visualized on the prior study. Trace pulmonary opacities are present in the left lung base, likely atelectasis. There is a small left pleural effusion. Mediastinum: Mediastinal contours appear normal. Heart size is normal. Bones and chest wall: No suspicious bony lesions. Overlying soft tissues appear unremarkable. IMPRESSION: Small left apical pneumothorax end small left pleural effusion. Dictated by: Kelly Corrales M.D. on 09/12/2018 at 11:37 Approved by: Kelly Corrales M.D. on 09/12/2018 at 11:39
[2018-09-12] MEDS: PANTOPRAZOLE 40 MG VIAL IV (11:33)
[2018-09-12] MEDS: ENOXAPARIN 40 MG/0.4 ML SYRINGE SUBCUT (11:33)
[2018-09-12] MEDS: OXYCODONE/ACETAMINOPHEN 5/325 TABLET 2 TAB PO (11:52)
--- NOTE | 2018-09-12 16:19 | CM.DPC ---
DCP: continued: case discussed in Team Rounds. RN noted that pt had fallen, is confused and impulsive. 11/23 DANCE ENTERTAINER as sitter for safety. Have left a vm now for July/onc secondary social studies teacher in hope that she will connect with DCP team on tomorrow for collaboration in the d/c POC going forward. Her ext is [phone].
--- NOTE | 2018-09-12 16:50 | PM.PN.1 ---
Subjective Date Patient Seen: 09/12/18 Time Patient Seen: 16:51 Interval history: Patient remains confused intermittently. In fact, he fell trying to get out of bed to go to the bathroom earlier today. I was in the operating room at the time when I was notified by nursing staff. Stat chest x-ray was obtained and wet reading given to me per Radiology showed small rim left pneumothorax and small pleural effusion. No obvious rib fractures. Patient remains intermittently confused and somnolent but is arousable at the time of my visit. He has been moaning intermittently throughout the afternoon but does not particularly localizes pain. Denies any chest pain or shortness of breath. Chest tube output has now become bloody after the fall. Exam Vital Signs (past 8 hours): - 09/12/18 09:36 09/12/18 11:31 09/12/18 13:40 Temperature Pulse Rate 68 Respiratory Rate Blood Pressure 120/55 L Pulse Oximetry 98 96 98 09/12/18 15:42 Temperature 96.5 F L Pulse Rate 60 Respiratory Rate 18 Blood Pressure 103/54 L Pulse Oximetry 97 Oxygen Delivery Method Room Air Oxygen Flow Rate 0 Narrative Exam Narrative: Thin male lying in bed mostly sleeping but is arousable. No acute distress. No tachypnea. Family and friends are at the bedside during my entire visit. Patient remains afebrile. No tachycardia. Blood pressure is adequate. Chest tube dressing is clean, dry, and intact. Continues with small air leak. There is now richard blood throughout the tubing and into the drainage container. He does not appear to be tender with palpation of the ribs. No shoulder pain. No deformities or tenderness of the upper extremities. No back pain or tenderness along the spinous processes. Pelvis appears to be stable. He is not complaining of any hip pain and he is actually moving spontaneously in the bed without any difficulty. Objective Labs Labs: Stat portable chest x-ray earlier today is as above Assessment & Plan Plan: Assessment/Plan Narrative: 73-year-old male with stage IV probable lung cancer now with left pneumothorax and small hemothorax status post CT-guided needle biopsy of lung nodule complicated by fall this afternoon. I had a lengthy discussion with the patient's family and medical power of civil litigation attorney, Cirsta, and his long-time personal friend, Raza, in the presence of the patient at the bedside today. I am unable to the basically clamped chest tube at this time due to persistent air leak and small residual rim pneumothorax. Furthermore, he is now draining a moderate bloody pleural effusion after the fall. I am unclear regarding the source of the hemorrhage. We will stop the Lovenox and Toradol however. Continue proton pump inhibitor. He does appear to be uncomfortable and having intermittent pain. By report he was having pain at home prior to admission. I will place a fentanyl patch now that the Toradol has been discontinued. Continue oxycodone as needed. He also has intravenous narcotics if needed. Add Ativan as needed for agitation as well as his comfort. Discussion basically was focused on further intervention for the patient. Family clearly indicated that his wishes are for do not resuscitate status. I therefore changed this in the record accordingly. Repeat chest x-ray tomorrow. We may be able to place the chest tube to a Heimlich valve, but I am somewhat concerned that patient may become confused and removed the chest tube. However, family feels that this is not significant problem if it does occur, especially if the above measures allow the patient to be discharged from the hospital back to his home environment where he may receive comfort measures. At this time they are inclined to pursue hospice care. I will consult discharge coordinators for such tomorrow. They understand this may take a couple of days to accomplish. They do not want IV fluids for hydration so we will simply place the fluids to KVO at this time for intravenous medications. He may continue diet as tolerated. Goals of therapy at this time would be to prevent prolonged hospitalization which would simply prolong the patient's suffering. Obviously we wish to keep him comfortable as well and alleviate his pain as much as possible. We will proceed as above. Orders were written. Quality VTE Deep Vein Thrombosis/Pulmonary Embolism Present on Admission: No
[2018-09-12] MEDS: fentaNYL 25 MCG/PATCH TOP (17:31)
--- NOTE | 2018-09-12 22:14 | PC.NURSE ---
SHIFT NOTE pt resting in bed. wakens to moderate verbal stimuli. confused and drowsy. follows simple commands with encouragement. L chest tube intact to 20cm suction, air leak noted. pt with large amount of bloody output this shift (MD already aware of increased output and bloody consistency). spO2 WNL on room air. Per Dr. Crandall, pt to be DNR and hospice consult for tomorrow. pt refused dinner tray and snacks/fluids. seems to have a bit more trouble swallowing PO pills compared to yesterday evening. pt intermittently moaning/groaning out loud. scheduled fentanyl patch applied, PRN dilaudid administered for breakthrough pain. pt's sister requesting to have PRN dilaudid adminstered Q4H to help keep pt comfortable. family at bedside to assist with reorientation. bed alarm for safety. call light within reach.
[2018-09-13] VITALS (7 sets, daily range): BP systolic 67–96; BP diastolic 38–48; PULSE 107–118; RESP 16–20; TEMP 36.4–36.8; O2SAT 0–97
[2018-09-13] MEDS: DEXAMETHASONE 4 MG TABLET PO
--- NOTE | 2018-09-13 | DI.RAD.S_ITS ---
PROCEDURE: XR CHEST 1V INDICATIONS: left pneumothorax TECHNIQUE: One view of the chest was acquired. COMPARISON: [facility], CT, CT CHEST ABD PEL W CON, 08/26/2018, 13:17. [facility], CR, XR CHEST 1V, 09/10/2018, 12:09. [facility], CT, CT BIOPSY LUNG LT, 09/10/2018, 10:05. [facility], CR, XR CHEST 2V, 08/20/2018, 14:45. [facility], CR, XR CHEST 1V, 09/10/2018, 10:38. [facility], CR, XR CHEST 1V, 09/10/2018, 10:10. [facility], CR, XR CHEST 1V, 09/12/2018, 11:04. FINDINGS: Surgical changes and devices: Stable positioning a left pleural drain. Lungs and pleura: Small left apical pneumothorax unchanged. Left basilar airspace opacity and small pleural effusion unchanged. Pici related to left upper lobe lung mass redemonstrated. Right lung is clear, and there is a small right basilar calcified granuloma. Mediastinum: Mediastinal contours appear normal. Heart size is normal. Bones and chest wall: Left sixth and eighth posterior lateral rib fractures. Left lateral chest subcutaneous emphysema redemonstrated. IMPRESSION: 1. Stable small non-tension left apical pneumothorax and left pleural drain also appearing stable in position. 2. Left sixth and eighth posterior lateral rib fractures which appear acute. Correlate clinically. 3. Small left basilar pleural effusion and probable atelectasis unchanged. 4. Left chest subcutaneous emphysema redemonstrated. 5. Spiculated left upper lobe lung mass. Dictated by: Aaron Morales A Interpreted: Rachna Walls MD on 09/13/2018 at 7:48 Approved by: Rachna Walls MD, PhD on 09/13/2018 at 12:12
[2018-09-13] MEDS: HYDROMORPHONE 1 MG INJ 0.5 MG IV ×2 (05:57→10:09)
--- NOTE | 2018-09-13 07:35 | PC.NURSE ---
arrived on shift, alerted by FINISHER SCREWDOWN that pt had low BP, per MD note pt and family looking for comfort measures. Paged , he will be coming up shortly. Called pt's sister Crista and spoke with her. She clarified pt's wishes for comfort care and she will come in. Daughter in law is present and son is on his way from [facility].
--- NOTE | 2018-09-13 07:51 | PM.PN.1 ---
Subjective Date Patient Seen: 09/13/18 Time Patient Seen: 07:51 Interval history: Patient became tachycardic progressively overnight with blood pressure in the 90s but now systolic blood pressure is 68. At the time of my visit currently systolic blood pressure is 72. Heart rate is 115 beats per minute. He has been tachycardic throughout the evening shift. Chest tube output is also increased markedly with a total of 1.4 L output of what appears to be richard blood. Chest x-ray was done this morning. He has had no laboratory studies during this admission at his request and the request of the family. Currently the patient is lying comfortably with the head of the bed elevated in no acute distress. In fact he is sleeping quietly with no tachypnea. He is arousable but minimally so, and he does not converse. He does not appear to be in pain. Family, including his sister who is the medical power of workers compensation attorney, is at the bedside during my visit. Exam Vital Signs (past 8 hours): - 09/13/18 00:05 09/13/18 00:23 09/13/18 05:48 Temperature 97.7 F 98.2 F Pulse Rate 107 H 118 H Respiratory Rate 16 20 Blood Pressure 96/38 L 88/45 L Pulse Oximetry 94 94 96 09/13/18 07:34 Temperature Pulse Rate 118 H Respiratory Rate Blood Pressure 67/48 L Pulse Oximetry Oxygen Delivery Method Room Air Oxygen Flow Rate 0 Narrative Exam Narrative: Lying in bed as above. No acute distress. No air hunger. No tachypnea. Vital signs are as above. Chest tube output is as above with obvious richard blood in the canister. Output is significant, especially through a very small chest tube. He has had 1.4 L of chest tube output in approximately 18 hr. Remainder the examination is deferred. Objective Labs Labs: Chest x-ray shows no significant pneumothorax. Chest tube is in place consistent with its initial placement. There is increased opacity of the base and lower lobe on the left side consistent with probable hemothorax. Assessment & Plan Plan: Assessment/Plan Narrative: 73-year-old male with stage IV lung cancer status post CT-guided left lung biopsy now with probable hemothorax in significant ongoing hemorrhage as manifested by chest tube output, tachycardia, and hypotension. I have discussed my impression and findings with the patient's family in detail this morning at the bedside in the presence of the patient. They unit and mostly reiterate their desire for comfort measures only and DNR status. Patient has received Dilaudid moments before my evaluation and his fentanyl patch is in place. Ativan is also available as needed. The do not wish to check his hemoglobin and potentially transfuse the patient. The clearly defer any further radiographic or laboratory studies. They wish only for comfort measures at this time and hospice care. Unfortunately I do not believe that the patient will survive hospitalization to be discharged home and, in fact, may be imminent today. I discussed all the above in detail with the patient's family. All questions were answered to their satisfaction, and they voiced understanding. We will proceed as above per the patient's wishes with the complete consent and agreement of the family. Quality VTE Deep Vein Thrombosis/Pulmonary Embolism Present on Admission: No
--- NOTE | 2018-09-13 11:53 | ONC.NAV ---
Description: Care Coordination/Inpt Activity: Called care management to check-in re: pt's status and discharge plan. Pt is reportedly actively dying, and is not expected to survive the next 24-hours. Pt will remain in the hospital until his . APPELLATE CONFEREE encouraged d/c corporate event planner to call should there be anything that Oncology can do to further support the family.
[2018-09-13] MEDS: HYDROMORPHONE 0.5 MG INJ IV ×2 (13:26→15:02)
[2018-09-13] MEDS: HYDROMORPHONE PCA 6 MG/30 ML PCA.VIAL 2.5 MG IV (15:02)
[2018-09-13] MEDS: LORazepam 2 MG/ML SYRINGE 1 MG IV (16:04)
--- NOTE | 2018-09-13 16:35 | PC.NURSE ---
Addendum entered by Megan Murphy R.N. 09/13/18 18:58: [facility] arrived, staff assisted to wash/clean up body. home requested chest tube removal. PIV remains with body. Family packed up and removed all personal items. [facility] has copy of form and left building around 1805. I spoke to [employer] via phone in regards to general patient health. They will follow up with family and home from here. Original Note: Addendum entered by Megan Murphy R.N. 09/13/18 16:55: Confirmed at 1645. No heart beat auscultated, no pulse felt, no rise or fall of chest. Family was at bedside and requested to send him to [facility] here in [place]. laboratory coordinator made aware, will call doctors. Original Note: MELISSA Continuous PCS initiated at start of shift; 0.5mg/hr. Patient became more agitated and family requested something to assist, I administered 1mg Ativan, IV at 1600. At 1610 family requested I confirm pt's . Upon auscultation, patient was still breathing and had very faint heart rate (4RR, 24HR). Family is at bedside. Chest tube in place and draining.
--- NOTE | 2018-09-13 18:36 | PM.DS.1 ---
History of Present Illness Date Patient Seen: 09/13/18 Time Patient Seen: 18:37 Chief complaint: Secondary malignant neoplasm of brain [id number] Narrative: Patient was admitted with left tube thoracostomy following pneumothorax from CT-guided image biopsy of lung mass. Following day he developed bloody the voluminous chest tube output consistent with intrathoracic hemorrhage. Consistent with the patient's wishes and after lengthy discussion with family including his medical power of corporate associate attorney he was made comfort measures only with DNR status. Discharge Providers Date of admission: 09/10/18 12:03 Primary care physician: Theresa Almodovar PA-C Consults: 09/10/18 12:32 Consult to Physician Routine Comment: chest tube insertion Consulting Provider: Robby Chowdhury Reason for consultation: chest tube 09/10/18 12:44 Consult to Discharge Planning Routine Comment: 09/10/18 14:11 Consult to Dietitian, Adult Routine Comment: Reason For Exam: weight loss 09/12/18 17:00 Consult to Hospice Referral Routine Comment: Stage IV lung cancer with chest tube Discharge provider: Ron Crandall MD Discharge Date: 09/13/18 Summary Discharge Diagnosis: 1. Stage IV metastatic lung cancer, final pathology from biopsy still pending at time of 2. Left hemothorax 3. Left pneumothorax 4. Left tube thoracostomy September 10, 2018 5. Confusion and mental status changes consistent with intracranial metastases 6. Severe protein calorie malnutrition likely secondary to advanced malignancy 7. History of tobacco abuse 8. Alcohol use 9. Hypercholesterolemia 10. CT-guided core needle biopsy of left lung mass September 10, 2018 Hospital Course: Patient was taken to Radiology for scheduled image guided core needle biopsy of left lung mass on September 10, 2018 per the Radiology attending at the request of the medical oncology physicians. Please see their note for further details. Patient was brought to the recovery unit following the procedure where he began to have some shortness of breath and mild tachypnea. Imaging showed significant left pneumothorax. Surgery services were immediately consult for tube thoracostomy. Procedure was performed in the recovery area without difficulty. Patient was admitted to the ICU initially for close monitoring then transferred to the regular surgical floor on hospital day 1. While there he remained afebrile but continued to have some discomfort related to his known cancer pain as well as discomfort from the chest tube. He was treated accordingly initially with Toradol and maintained on his Decadron. He had intermittent bouts of confusion which was consistent with his baseline at home prior to the procedure. Unfortunately he experienced a fall on hospital day 1 while attempting to ambulate to the bathroom unassisted with his chest tube. There was no evidence of any immediate injury, but he then began to have bloody output through the chest tube. Air leak persisted as well. Lovenox and Toradol or stopped. Alternative analgesia with opioids was instituted. Patient's pain was controlled but he continued to have bloody output. Air leak persisted as well. I had a lengthy discussion with the patient's family on hospital day 2 in light of these developments. Unit and thus decision by all family members including medical power of corporate associate attorney was for comfort measures only and DNR status. These measures were clearly consistent with the patient's wishes and advanced directives. By the morning of hospital day 3 he became acutely tachycardic with systolic blood pressure of 68. Total chest tube output had been approximately 1.5 L of bloody material in less than 24 hr. However, no laboratory studies were obtained nor was transfusion an option based on family directives consistent with patient wishes. Therefore he was maintained on comfort measures only and simply monitored throughout the day. He continued to have ongoing tachycardia and hypotension. He became less responsive through the day with less frequent and shall or respirations. By 1610 on the afternoon of September 13, 2018 he began to lose vital signs. He became apneic with no measurable blood pressure or detectable cardiac activity shortly thereafter and officially approximately 1655 on September 13, 2018. was pronounced. Family was at the bedside. Status at Discharge Cognitive/behavioral status at discharge: Exam Vital Signs (past 8 hours): - 09/13/18 15:00 Pulse Oximetry 0 L Oxygen Delivery Method Room Air Oxygen Flow Rate 0 Narrative Exam Narrative: Patient without vital signs as above. 165September 13, 2018. Objective Labs Labs: None Discharge Plan Discharge Plan Patient Disposition: Other facility: [facility] Home Discharge Data Primary Care Provider: Theresa Almodovar Attending Provider: Amrik Mena Admit Date/Time: 09/10/18 12:03 Quality VTE Deep Vein Thrombosis/Pulmonary Embolism Present on Admission: No
--- NOTE | 2018-09-13 18:47 | P.DS_ITS ---
History of Present Illness Date Patient Seen: 09/13/18 Time Patient Seen: 18:37 Chief complaint: Secondary malignant neoplasm of brain [id number] Narrative: Patient was admitted with left tube thoracostomy following pneumothorax from CT-guided image biopsy of lung mass. Following day he developed bloody the voluminous chest tube output consistent with intrathoracic hemorrhage. Consistent with the patient's wishes and after lengthy discussion with family including his medical power of immigration attorney he was made comfort measures only with DNR status. Discharge Providers Date of admission: 09/10/18 12:03 Primary care physician: Theresa Almodovar PA-C Consults: 09/10/18 12:32 Consult to Physician Routine Comment: chest tube insertion Consulting Provider: Robby Chowdhury Reason for consultation: chest tube 09/10/18 12:44 Consult to Discharge Planning Routine Comment: 09/10/18 14:11 Consult to Dietitian, Adult Routine Comment: Reason For Exam: weight loss 09/12/18 17:00 Consult to Hospice Referral Routine Comment: Stage IV lung cancer with chest tube Discharge provider: Ron Crandall MD Discharge Date: 09/13/18 Summary Discharge Diagnosis: 1. Stage IV metastatic lung cancer, final pathology from biopsy still pending at time of 2. Left hemothorax 3. Left pneumothorax 4. Left tube thoracostomy September 10, 2018 5. Confusion and mental status changes consistent with intracranial metastases 6. Severe protein calorie malnutrition likely secondary to advanced malignancy 7. History of tobacco abuse 8. Alcohol use 9. Hypercholesterolemia 10. CT-guided core needle biopsy of left lung mass September 10, 2018 Hospital Course: Patient was taken to Radiology for scheduled image guided core needle biopsy of left lung mass on September 10, 2018 per the Radiology attending at the request of the medical oncology physicians. Please see their note for further details. Patient was brought to the recovery unit following the procedure where he began to have some shortness of breath and mild tachypnea. Imaging showed significant left pneumothorax. Surgery services were immediately consult for tube thoracostomy. Procedure was performed in the recovery area without difficulty. Patient was admitted to the ICU initially for close monitoring then transferred to the regular surgical floor on hospital day 1. While there he remained afebrile but continued to have some discomfort related to his known cancer pain as well as discomfort from the chest tube. He was treated accordingly initially with Toradol and maintained on his Decadron. He had intermittent bouts of confusion which was consistent with his baseline at home prior to the procedure. Unfortunately he experienced a fall on hospital day 1 while attempting to ambulate to the bathroom unassisted with his chest tube. There was no evidence of any immediate injury, but he then began to have bloody output through the chest tube. Air leak persisted as well. Lovenox and Toradol or stopped. Alternative analgesia with opioids was instituted. Patient 's pain was controlled but he continued to have bloody output. Air leak persisted as well. I had a lengthy discussion with the patient's family on hospital day 2 in light of these developments. Unit and thus decision by all family members including medical power of immigration attorney was for comfort measures only and DNR status. These measures were clearly consistent with the patient's wishes and advanced directives. By the morning of hospital day 3 he became acutely tachycardic with systolic blood pressure of 68. Total chest tube output had been approximately 1.5 L of bloody material in less than 24 hr. However, no laboratory studies were obtained nor was transfusion an option based on family directives consistent with patient wishes. Therefore he was maintained on comfort measures only and simply monitored throughout the day. He continued to have ongoing tachycardia and hypotension. He became less responsive through the day with less frequent and shall or respirations. By 1610 on the afternoon of September 13, 2018 he began to lose vital signs. He became apneic with no measurable blood pressure or detectable cardiac activity shortly thereafter and officially approximately 1655 on September 13, 2018. was pronounced. Family was at the bedside. Status at Discharge Cognitive/behavioral status at discharge: Exam Vital Signs (past 8 hours): - 09/13/18 15:00 Pulse Oximetry 0 L Oxygen Delivery Method Room Air Oxygen Flow Rate 0 Narrative Exam Narrative: Patient without vital signs as above. 165September 13, 2018. Objective Labs Labs: None Discharge Plan Discharge Plan Patient Disposition: Other facility: [facility] Discharge Data Primary Care Provider: Theresa Almodovar Attending Provider: Amrik Mena Admit Date/Time: 09/10/18 12:03 Quality VTE Deep Vein Thrombosis/Pulmonary Embolism Present on Admission: No
== END 2018-09-13 18:00 | disposition expired | DRG 200 ==
LOC: ICU 13:46 → AC 09-13 18:36 → ICU 08-01 14:03
PROVIDERS: Admitting Provider Specialist; Family Provider Physician Assistant; PCP Physician Assistant; Visit Provider Internal Medicine Hematology & Oncology
PROC: BB24ZZZ Computerized Tomography (CT Scan) of Bilateral Lungs (ICD-10-PCS; CPT 32408; principal; 2018-09-10 10:00)
DX: J95.811 Postprocedural pneumothorax (principal); C34.12 Malignant neoplasm of upper lobe, left bronchus or lung; C79.31 Secondary malignant neoplasm of brain; J94.2 Hemothorax; Z68.1 Body mass index [BMI] 19.9 or less, adult; J95.830 Postprocedural hemorrhage of a respiratory system organ or structure following a respiratory system procedure; F17.210 Nicotine dependence, cigarettes, uncomplicated; Z66 Do not resuscitate; Z51.5 Encounter for palliative care; R41.0 Disorientation, unspecified; E78.00 Pure hypercholesterolemia, unspecified; W18.30XA Fall on same level, unspecified, initial encounter; Y92.230 Patient room in hospital as the place of occurrence of the external cause; Y83.8 Other surgical procedures as the cause of abnormal reaction of the patient, or of later complication, without mention of misadventure at the time of the procedure
CPT/HCPCS: 32405; 71045; 77012; 87797; 88305; 88341; 88342; 99222; 99232; 99238; C9113; J1170; J1650; J1885; J2060; J2250; J3010